=== PATIENT | female | born 1945 | race Caucasian/White ===

== ENCOUNTER → 2017-07-11 | Outpatient (CLI) | payer OTHER ==
[~2017-07-11] MED LIST: ASPIRIN; BENAZEPRIL; BISO5TAB PO; CHOL500014 PO; CLON0.2T PO; FOLI1TAB51 PO; LOVA20TA4 PO; METH2.5T3 PO; NOR10T PO; SERTRALINE
[2017-07-11 13:43] LABS: Basophils # (auto) 0 uL; Basophils % (auto) 0.4 % (0.0-2.0); Eosinophils # (auto) 0.1 uL; Eosinophils % (auto) 2.2 % (0.0-7.0); Hematocrit 39.5 % (36.0-46.0); Hemoglobin 13.5 g/dL (12.2-16.2); Lymphocytes # (auto) 0.7 uL; Lymphocytes % (auto) 13.3 % (10.0-50.0); Mean Corpuscular Hemoglobin 30.4 pg (28.0-32.0); Mean Corpuscular Hgb Conc. 34.2 g/dL (32.0-36.0); Mean Platelet Volume 7.4 fL (6.9-10.8); Monocytes # (auto) 0.4 uL; Monocytes % (auto) 6.8 % (0.0-12.0); Neutrophils # (auto) 4.3 uL; Neutrophils % (auto) 77.3 % (37.0-80.0); Nucleated Red Blood Cells % 0.1 %; Platelet Count (auto) 73 10^3/uL (140-450); Red Cell Distribution Width 14.2 % (11.8-14.3); Urine Bilirubin Negative (Negative); Urine Blood TRACE /uL (Negative); Urine Color Yellow (Yellow); Urine Glucose Normal (Normal); Urine Ketone Negative (Negative); Urine Nitrite Negative (Negative); Urine RBC 5 /hpf (0 - 4); Urine Squamous Epithelial Cell FEW /hpf (<5); Urine pH 6.5 (5.0-8.0); White Blood Cell 5.6 10^3/uL (4.4-10.8)
[2017-07-11 14:14] LABS: Albumin 3.5 g/dL (3.4-5.0); BUN/Creatinine Ratio 12.7; Bilirubin, Total 1.1 mg/dL (0.2-1.0); Calcium 9.5 mg/dL (8.5-10.1); Potassium 3.1 mmol/L (3.5-5.1); Total Protein 6.7 g/dL (6.4-8.2)
== END | disposition home or self-care (01) ==
LOC: LAB 13:11
PROVIDERS: ATTEND Family Medicine
DX: I10 Essential (primary) hypertension (principal); E78.5 Hyperlipidemia, unspecified
CPT/HCPCS: 36415; 80053; 81001; 84439; 84443; 84481; 85025; 85652; 86141

== ENCOUNTER → 2019-02-26 | Outpatient (CLI) | payer OTHER ==
[2019-02-26 14:57] LABS: Eosinophils # (auto) 0.2 uL; Hematocrit 36.9 % (36.0-46.0); Lymphocytes # (auto) 1.2 uL; Platelet Count (auto) 52 10^3/uL (140-450)
[2019-02-26 14:58] LABS: Basophils # (auto) 0 uL; Basophils % (auto) 0.3 % (0.0-2.0); Eosinophils % (auto) 2.4 % (0.0-7.0); Lymphocytes % (auto) 17.7 % (10.0-50.0); Mean Corpuscular Hemoglobin 32.1 pg (28.0-32.0); Mean Corpuscular Hgb Conc. 35.1 g/dL (32.0-36.0); Mean Corpuscular Volume 91.4 fL (80.0-100.0); Monocytes # (auto) 0.4 uL; Monocytes % (auto) 6.6 % (0.0-12.0); Neutrophils # (auto) 4.8 uL; Nucleated Red Blood Cells % 0.7 %; Red Blood Cells 4.03 10^6/uL (4.0-5.20); Red Cell Distribution Width 16.1 % (11.8-14.3); White Blood Cell 6.5 10^3/uL (4.4-10.8)
[2019-02-26 15:00] LABS: Urine Bacteria NONE SEEN /hpf (None Seen); Urine Blood Negative /uL (Negative); Urine Hyaline Cast FEW /lpf (0 - 2); Urine Mucus FEW (None Seen); Urine Specific Gravity 1.015 (1.001-1.035); Urine WBC 8 /hpf (0 - 5)
[2019-02-26 15:22] LABS: Albumin 3.7 g/dL (3.4-5.0); Calcium 9.6 mg/dL (8.5-10.1); Potassium 3.3 mmol/L (3.5-5.1)
[2019-02-26 15:25] LABS: BUN/Creatinine Ratio 17.8; Bilirubin, Total 1.9 mg/dL (0.2-1.0); Total Protein 6.5 g/dL (6.4-8.2)
[2019-02-26 15:30] LABS: Folate (Folic Acid) > 24.00 ng/mL (5.38-24)
== END | disposition home or self-care (01) ==
LOC: LAB 14:31
PROVIDERS: ATTEND Nurse Practitioner
DX: E78.5 Hyperlipidemia, unspecified (principal)
CPT/HCPCS: 36415; 80053; 81001; 82607; 82746; 84443; 85025

== ENCOUNTER → 2019-03-19 | Outpatient (CLI) | payer OTHER ==
[2019-03-19 14:13] LABS: Cholesterol 96 mg/dL (< 200); HDL Cholesterol 52 mg/dL (40-59); LDL Cholesterol 48 mg/dL (< 100); Triglycerides 66 mg/dL (< 150)
== END | disposition home or self-care (01) ==
LOC: LAB 12:52
PROVIDERS: ATTEND Nurse Practitioner
DX: E78.5 Hyperlipidemia, unspecified (principal)
CPT/HCPCS: 36415; 80061

== ENCOUNTER → 2020-06-24 | Outpatient (CLI) | payer OTHER ==
[~2020-06-24] MED LIST changes: +METH2.5T PO; -METH2.5T3 PO
[2020-06-24 12:38] LABS: Urine Bacteria FEW /hpf (None Seen); Urine Blood Negative /uL (Negative); Urine Specific Gravity 1.013 (1.001-1.035); Urine WBC 2 /hpf (0 - 5)
[2020-06-24 12:39] LABS: Basophils # (auto) 0 10 ^3/uL (0-0.2); Basophils % (auto) 0.4 % (0.0-2.0); Eosinophils # (auto) 0.1 10 ^3/uL (0-0.8); Eosinophils % (auto) 2.7 % (0.0-7.0); Hematocrit 32.2 % (36.0-46.0); Hemoglobin 11.6 g/dL (12.2-16.2); Lymphocytes # (auto) 1.1 10 ^3/uL (0.4-5.4); Lymphocytes % (auto) 20.2 % (10.0-50.0); Mean Corpuscular Hemoglobin 32.8 pg (28.0-32.0); Mean Corpuscular Hgb Conc. 35.9 g/dL (32.0-36.0); Mean Corpuscular Volume 91.5 fL (80.0-100.0); Monocytes # (auto) 0.4 10 ^3/uL (0-1.3); Monocytes % (auto) 7.7 % (0.0-12.0); Neutrophils # (auto) 3.7 10 ^3/uL (1.6-8.6); Nucleated Red Blood Cells % 1.8 %; Platelet Count (auto) 67 10^3/uL (140-450); Red Blood Cells 3.52 10^6/uL (4.0-5.20); Red Cell Distribution Width 17.6 % (11.8-14.3); White Blood Cell 5.4 10^3/uL (4.4-10.8)
[2020-06-24 12:47] LABS: Albumin 3.6 g/dL (3.4-5.0); Calcium 9.6 mg/dL (8.5-10.1); Potassium 3.3 mmol/L (3.5-5.1)
[2020-06-24 12:55] LABS: BUN/Creatinine Ratio 18.8; Bilirubin, Total 1.6 mg/dL (0.2-1.0); Total Protein 6.5 g/dL (6.4-8.2)
== END | disposition home or self-care (01) ==
LOC: LAB 12:01
PROVIDERS: ATTEND Nurse Practitioner
DX: I10 Essential (primary) hypertension (principal); E78.5 Hyperlipidemia, unspecified
CPT/HCPCS: 36415; 80053; 80061; 81001; 84443; 85025

== ENCOUNTER → 2020-12-07 | Outpatient (CLI) | payer OTHER ==
[~2020-12-07] MED LIST changes: +BISO1TAB17 PO; -BISO5TAB PO
[2020-12-07 12:05] LABS: White Blood Cell 5.8 10^3/uL (4.4-10.8)
[2020-12-07 12:09] LABS: Hematocrit 34.3 % (36.0-46.0); Hemoglobin 11.9 g/dL (12.2-16.2); Mean Corpuscular Hemoglobin 31.3 pg (28.0-32.0); Mean Corpuscular Hgb Conc. 34.6 g/dL (32.0-36.0); Mean Corpuscular Volume 90.5 fL (80.0-100.0); Platelet Count (auto) 42 10^3/uL (140-450); Red Cell Distribution Width 16.7 % (11.8-14.3)
[2020-12-07 12:16] LABS: Band Neutrophils % (manual) 0; Blast Cells 0; Metamyelocytes % 0; Myelocytes % 0; Promyelocytes % 0; Reactive Lymphocytes 0
[2020-12-07 12:33] LABS: Potassium 3.4 mmol/L (3.5-5.1)
[2020-12-07 12:50] LABS: Albumin 3.1 g/dL (3.4-5.0); BUN/Creatinine Ratio 20.5; Bilirubin, Total 1.2 mg/dL (0.2-1.0); Calcium 9.6 mg/dL (8.5-10.1)
[2020-12-07 13:20] LABS: Basophils % (manual) 1 (0.0-2.0); Eosinophils % (manual) 2 (0-7); Lymphocytes % (manual) 12 (10.0-50.0); Monocytes % (manual) 6 (0-12)
== END | disposition home or self-care (01) ==
LOC: LAB 11:26
PROVIDERS: ATTEND Student in an Organized Health Care Education/Training Program
DX: I10 Essential (primary) hypertension (principal); E78.5 Hyperlipidemia, unspecified
CPT/HCPCS: 36415; 80053; 80061; 85007; 85027

== ENCOUNTER 2021-01-19 22:03 | Emergency (ER) | payer OTHER ==
[~2021-01-19] VITALS: Ht 160 cm; Wt 74.8 kg
[2021-01-20] MEDS ORDERED: cloNIDine HCL 0.1 MG TAB PO ONE
[2021-01-20] MEDS ORDERED: TETANUS-DIPTH-ACEL PERTUSSIS 0.5ML SYR Tdap IM ONE (00:15)
[2021-01-20 02:14] VITALS: BP 168/74
== END 2021-01-20 03:13 | disposition home or self-care (01) ==
LOC: ER 22:07
DX: S01.81XA Laceration without foreign body of other part of head, initial encounter (principal); I10 Essential (primary) hypertension; Z79.899 Other long term (current) drug therapy; X58.XXXA Exposure to other specified factors, initial encounter; Y93.89 Activity, other specified; Y92.89 Other specified places as the place of occurrence of the external cause; Y99.8 Other external cause status
CPT/HCPCS: 12011; 70450; 72125; 90471; 90715

== ENCOUNTER → 2021-03-17 | Outpatient (CLI) | payer OTHER ==
[2021-03-17 12:00] LABS: Hemoglobin 11.7 g/dL (12.2-16.2); Mean Corpuscular Hemoglobin 31.6 pg (28.0-32.0); Mean Corpuscular Hgb Conc. 35.5 g/dL (32.0-36.0); Monocytes # (auto) 0.3 10 ^3/uL (0-1.3); Neutrophils # (auto) 3.8 10 ^3/uL (1.6-8.6); White Blood Cell 5.2 10^3/uL (4.4-10.8)
[2021-03-17 12:02] LABS: Basophils # (auto) 0.1 10 ^3/uL (0-0.2); Eosinophils # (auto) 0.2 10 ^3/uL (0-0.8); Eosinophils % (auto) 3.2 % (0.0-7.0); Lymphocytes # (auto) 0.9 10 ^3/uL (0.4-5.4); Monocytes % (auto) 5.2 % (0.0-12.0); Neutrophils % (auto) 72.6 % (37.0-80.0); Nucleated Red Blood Cells % 0.3 %; Red Blood Cells 3.71 10^6/uL (4.0-5.20)
[2021-03-17 12:39] LABS: Potassium 3.8 mmol/L (3.5-5.1)
[2021-03-17 12:50] LABS: Albumin 3.2 g/dL (3.4-5.0); BUN/Creatinine Ratio 23.1; Bilirubin, Total 1.3 mg/dL (0.2-1.0); Calcium 9.7 mg/dL (8.5-10.1); Total Protein 6.5 g/dL (6.4-8.2)
[2021-03-17 13:17] LABS: Urine Bacteria NONE SEEN /hpf (None Seen); Urine Blood 3+ /uL (Negative); Urine Budding Yeast OCCASIONAL /hpf (None Seen); Urine Mucus FEW (None Seen); Urine Specific Gravity 1.018 (1.001-1.035); Urine WBC 241 /hpf (0 - 5)
== END | disposition home or self-care (01) ==
LOC: LAB 11:43
PROVIDERS: ATTEND Nurse Practitioner
DX: I10 Essential (primary) hypertension (principal); E78.5 Hyperlipidemia, unspecified
CPT/HCPCS: 36415; 80053; 80061; 81001; 84443; 85025

== ENCOUNTER → 2021-04-02 | Outpatient (CLI) | payer OTHER | END | disposition home or self-care (01) | LOC: US 13:43 | PROVIDERS: ATTEND Nurse Practitioner | DX: N63.21 Unspecified lump in the left breast, upper outer quadrant (principal); C50.412 Malignant neoplasm of upper-outer quadrant of left female breast; Z17.0 Estrogen receptor positive status [ER+]; Z90.710 Acquired absence of both cervix and uterus; Z98.890 Other specified postprocedural states; Z79.899 Other long term (current) drug therapy | CPT/HCPCS: 19083; 76642; 76942 ==